=== PATIENT | female | born 1975 | race Caucasian/White ===

== ENCOUNTER 2016-10-22 19:55 | Emergency (ER) | payer SELFPAY ==
[~2016-10-22 19:55] MED LIST: ALBUTEROL17 G1 IH; ALBUTEROL17 GM INH; ASMANEX PO; GUAIFENESIN-1 CAP.S3 PO; LEVAQUIN PO; NICOTINE TRANSD21 MG EXT; NO MEDICATIONS; PREDNISONE PO; ZITHROMAX PO
[2016-10-22] MEDS ORDERED: SYNTHROID175 MCG PO (20:13)
[2016-10-22 20:30] LABS: URINE SOURCE CLEAN CATCH
[2016-10-22 20:33] LABS: URINE APPEARANCE HAZY; URINE BILIRUBIN NEG (NEG); URINE BLOOD 3+ (NEG); URINE COLOR DK YELLOW; URINE GLUCOSE NEG (NORM); URINE KETONE NEG (NEG); URINE LEUKOCYTE ESTERASE NEG (NEG); URINE NITRATE NEG (NEG); URINE PH 5.5 (5-8); URINE PROTEIN 1+ (NEG); URINE SPECIFIC GRAVITY 1.025 (1.003-1.035)
[2016-10-22 20:34] LABS: MICRO INDICATED? YES
[2016-10-22 20:37] LABS: CULTURE INDICATED? NO; URINE BACTERIA NEG (NEG); URINE RBC 200-300 /[HPF] (0-2); URINE SQUAMOUS EPITHELIAL CELL FEW /[HPF]; URINE WBC 0-2 /[HPF] (0-5)
== END 2016-10-22 21:23 | disposition home or self-care (01) ==
LOC: SED 19:55
PROVIDERS: Physician Assistant
DX: J40 Bronchitis, not specified as acute or chronic (principal); J06.9 Acute upper respiratory infection, unspecified; E03.9 Hypothyroidism, unspecified; F17.210 Nicotine dependence, cigarettes, uncomplicated; J45.909 Unspecified asthma, uncomplicated; Z90.89 Acquired absence of other organs; Z98.51 Tubal ligation status
CPT/HCPCS: 81003; 84703; 99284